=== PATIENT | male | born 2000 | race Caucasian/White ===

== ENCOUNTER 2021-05-17 13:25 | Emergency (ER) | payer OTHER, SELFPAY ==
[2021-05-17 13:34] VITALS: BP 140/66; PULSE 65; RESP 20; TEMP 37.1; O2SAT 96
--- NOTE | 2021-05-17 18:31 | ED_ITS ---
HPI - Skin/Abscess/Foreign Bdy General Chief complaint: Skin/Abscess/Foreign Body Stated complaint: open cyst on shoulder blade Time Seen by Provider: 05/17/21 18:02 Source: patient Mode of arrival: Ambulatory Limitations: no limitations History of Present Illness HPI narrative: Patient is a 21-year-old male here for evaluation what he states is a cyst that is draining on the back of his left shoulder blade. He states he has had something there for upwards of 1 year however but the past couple days it is started to drain. It is somewhat tender. no fevers. Has not tried anything for the symptoms prior to arrival. Related Data Previous Rx's Medication Instructions Recorded cephalexin 500 mg PO QID 7 Days #28 cap 05/17/21 Allergies Allergy/AdvReac Type Severity Reaction Status Date / Time Sulfa (Sulfonamide Allergy Verified 05/17/21 13:36 Antibiotics) Review of Systems Constitutional Constitutional: Denies headache(s) ENT Ears, Nose, Mouth, and Throat: Denies headache(s) Integumentary/Breasts Comments: Swelling and drainage from his left shoulder blade Neurologic Neurologic: Denies headache(s) Hematologic/Lymphatic On Anticoagulants: No Allergic/Immunologic Allergic/Immunologic: Reports system reviewed and no additional complaints, exc ept as documented Patient History Medical History Healthy adult Social History Smoking Status: Current every day smoker Smoking Status: Current every day smoker Exam Initial Vital Signs Initial Vital Signs: Vital Signs Temperature 98.7 F 05/17/21 13:34 Pulse Rate 65 05/17/21 13:34 Respiratory Rate 20 05/17/21 13:34 Blood Pressure 140/66 05/17/21 13:34 Pulse Oximetry 96 05/17/21 13:34 Const General: cooperative and comfortable Limitations: mental status not altered HENMT Head: normal to inspection and normocephalic Skin Other: patient has a 2 cm x 2 cm area of induration on the upper portion of his left back over the shoulder blade. There is some surrounding erythema to this. There is a small amount of drainage from the area. Is somewhat tender to palpation. Extrem General: normal to inspection and capillary refill normal Psych Appearance: grossly normal and well kempt Course Orders Ordered: Discontinued Medications Cephalexin HCl (Cephalexin 250 Mg Capsule) 500 mg PO NOW ONE Stop: 05/17/21 18:32 Last Admin: 05/17/21 18:41 Dose: 500 mg Documented by: REMY Vital Signs Vital signs: Vital Signs - 8 hr 05/17/21 18:43 Pulse Rate 78 Respiratory Rate 12 Blood Pressure 132/76 Pulse Oximetry 99 MDM - Skin/Abscess/Foreign Bdy MDM Narrative Medical decision making narrative: I do suspect that his symptoms today are more likely a cyst that has become infected rather than an abscess based on the fact that he has had a swelling in this area for the past year but has just recently drained become more tenderTo palpation. I feel that we should hold on a incision and drainage because of this. We did discussed what a cyst is and how the entire cyst needs to be removed in the difference between that and an abscess that can just be drained. He expressed understanding of this. We will place him on antibiotics and have him talk with his primary doctor about a referral to see General surgery. He was given return precautions. He expressed understanding and agreement. Discharge Plan Departure Patient Disposition: Home Clinical Impression: Infected cyst of skin Instructions: Epidermal Cyst Activity Restrictions/Additional Instructions: recommend that you take the antibiotics as directed also recommend that you contact your medical department to discuss a referral to see General surgery to have the cyst removed. Return to the emergency department for any new or worsening symptoms Prescriptions: New cephalexin 500 mg capsule 500 mg PO QID 7 Days Qty: 28 RF: 0
[2021-05-17] MEDS: cephALEXin 250 MG CAPSULE 500 MG PO (18:41)
[2021-05-17 18:43] VITALS: BP 132/76; PULSE 78; RESP 12; O2SAT 99
== END 2021-05-17 18:44 | disposition home or self-care (01) ==
PROVIDERS: Emergency Provider Emergency Medicine
DX: L72.0 Epidermal cyst (principal); L08.89 Other specified local infections of the skin and subcutaneous tissue
CPT/HCPCS: 99283